=== PATIENT | male | born 1970 | race Two or more races ===

== ENCOUNTER 2021-02-02 16:52 | Inpatient (IN) | payer MEDICAID, OTHER ==
[~2021-02-02] VITALS: Ht 180.3 cm; Wt 110.9 kg
[2021-02-02] MEDS ORDERED: PROZAC PO (19:35)
[2021-02-02] MEDS ORDERED: GABAPENTIN 300 MG CAPSULE PO ONE (20:15)
[2021-02-02] MEDS ORDERED: IBUPROFEN 800 MG TABLET PO ONE (20:15)
[2021-02-02 20:28] LABS: BASOPHILS % (AUTO) 0.7 % (0.0-2.0); EOSINOPHILS % (AUTO) 3.4 % (1.0-6.0); HEMATOCRIT 50.8 % (41-53); HEMOGLOBIN 17.2 g/dL (13.5-17.5); LYMPHOCYTES % (AUTO) 23.8 % (22.0-44.0); MEAN CORPUSCULAR HEMOGLOBIN 31.9 pg (26.0-34.0); MEAN CORPUSCULAR HGB CONC 33.8 G/dL (31.0-37.0); MEAN CORPUSCULAR VOLUME 94 fL (80-100); MONOCYTES % (AUTO) 7.8 % (2.0-9.0); NEUTROPHILS # (AUTO) 8.2 K/uL (1.8-7.7); NEUTROPHILS % (AUTO) 64.3 % (40.0-70.0); PLATELET COUNT (AUTO) 424 K/uL (150-450); RED BLOOD CELL COUNT(AUTO) 5.39 MIL/uL (4.50-5.90); RED CELL DISTRIBUTION WIDTH 13.5 % (11.5-14.5)
[2021-02-02 20:44] LABS: AMPHET/METH SCREEN,URINE POSITIVE (NEGATIVE); BARBITURATE SCREEN, URINE NEGATIVE (NEGATIVE); BENZODIAZEPINES SCREEN,URINE NEGATIVE (NEGATIVE); CANNABINOID SCREEN,URINE NEGATIVE (NEGATIVE); COCAINE SCREEN,URINE NEGATIVE (NEGATIVE); METHADONE SCREEN, URINE NEGATIVE (NEGATIVE); OPIATE SCREEN,URINE NEGATIVE (NEGATIVE); PHENCYCLIDINE SCREEN,URINE NEGATIVE (NEGATIVE)
[2021-02-02 20:49] LABS: ANION GAP 11 mmol/L (8-16); CALCIUM, TOTAL 9.3 mg/dL (8.8-10.5); CARBON DIOXIDE 26 mmol/L (22-29); CHLORIDE 102 mmol/L (98-107); GLOMERULAR FILTR. RATE CALC > 60 mL/min (>60); GLUCOSE,RANDOM 133 mg/dL (70-110); POTASSIUM 4.9 mmol/L (3.5-5.1); SODIUM SERUM 139 mmol/L (136-145); UREA NITROGEN, BLOOD 17 mg/dL (7-18)
[2021-02-02 20:54] LABS: ALANINE AMINOTRANSFERASE 66 U/L (12-78); ALBUMIN 4.2 g/dL (3.4-5.0); ALKALINE PHOSPHATASE 109 U/L (46-116); ASPARTATE AMINOTRANSFERASE 38 U/L (15-37); BILIRUBIN,TOTAL 0.5 mg/dL (0.1-1.0); TOTAL PROTEIN, SERUM 7.9 g/dL (6.4-8.2)
[2021-02-02 21:52] LABS: COVID AG,FIA SOURCE NASOPHARYNGEAL
[2021-02-02] MEDS ORDERED: ZOLPIDEM TARTRATE 10 MG TABLET PO PRN (22:15)
[2021-02-03 03:44] LABS: APPEARANCE,URINE TURBID (CLEAR); BILIRUBIN,URINE NEGATIVE (NEGATIVE); GLUCOSE, URINE (UA) 250 mg/dL (NEGATIVE); KETONES,URINE NEGATIVE (NEGATIVE); LEUKOCYTE ESTERASE ,URINE NEGATIVE (NEGATIVE); NITRATE,URINE NEGATIVE (NEGATIVE); OCCULT BLOOD,URINE NEGATIVE (NEGATIVE); PROTEIN,URINE NEGATIVE (NEGATIVE); UROBILINOGEN,URINE 0.2 mg/dL (<=1.0)
[2021-02-03 03:50] LABS: BACTERIA,URINE Few /HPF (None Seen); CALCIUM OXALATE CRYSTALS,UR Few /LPF (None Seen); RBC,URINE 0-2 /HPF (0-2); SQUAMOUS EPITHELIAL CELL,UR Rare /LPF (None Seen)
[2021-02-03] MEDS ORDERED: GABAPENTIN 100 MG CAPSULE PO PRN (06:00)
[2021-02-03] MEDS ORDERED: GABAPENTIN 300 MG CAPSULE PO PRN (06:15)
[2021-02-03] MEDS ORDERED: IBUPROFEN 800 MG TABLET PO PRN (06:15)
[2021-02-03] MEDS ORDERED: GABAPENTIN 100 MG CAPSULE PO ONE (06:15)
[2021-02-03] MEDS ORDERED: GABAPENTIN 300 MG CAPSULE PO ONE (06:30)
[2021-02-03 10:37] VITALS: BP 147/86
[2021-02-03] MEDS ORDERED: PROP20TA96 PO (12:19)
[2021-02-03] MEDS ORDERED: FLUO20CA36 PO (12:19)
[2021-02-03] MEDS ORDERED: GABA-1181 PO (12:19)
[2021-02-03] MEDS ORDERED: MELA10TA2 PO (12:19)
[2021-02-03] MEDS ORDERED: INFLUENZA VIRUS VACCINE QVS 2021-22 (6MO+)/PF 60 MCG/0.5 ML SYRINGE IM. ONE (12:30)
[2021-02-03] MEDS ORDERED: IBUPROFEN 600 MG TABLET PO PRN (12:45)
[2021-02-03] MEDS ORDERED: PROPRANOLOL HCL 20 MG TABLET PO PRN (12:45)
[2021-02-03] MEDS: GABAPENTIN 300 MG CAPSULE PO SCH ×2 (13:00→16:41)
[2021-02-03 16:17] VITALS: BP 107/67
[2021-02-03 16:41] VITALS: BP 110/66
[2021-02-03] MEDS ORDERED: ONDANSETRON HCL 4 MG TABLET PO PRN (17:30)
[2021-02-03] MEDS ORDERED: GuaiFENesin/D-METHORPHAN [SUGAR-FREE] 200-20MG/10 ML SYRUP UDCUP PO PRN (17:30)
[2021-02-03] MEDS ORDERED: CloNIDine HCL 0.1 MG TABLET PO PRN (17:30)
[2021-02-03] MEDS ORDERED: DOCUSATE SODIUM 100 MG CAPSULE PO PRN (17:30)
[2021-02-03] MEDS ORDERED: ALBUTEROL SULFATE HFA 90 MCG/PUFF 8 GM INHALER IH PRN (17:30)
[2021-02-03] MEDS ORDERED: PETROLATUM,WHITE 28 GM JELLY TP PRN (17:30)
[2021-02-03] MEDS ORDERED: MAGNESIUM HYDROXIDE SUSPENSION 30 ML UDCUP PO PRN (17:30)
[2021-02-03] MEDS ORDERED: LOPERAMIDE HCL 2 MG CAPSULE PO PRN (17:30)
[2021-02-03] MEDS ORDERED: MAG HYDROX/AL HYDROX/SIMETH ES 30 ML SUSPENSION UDCUP PO PRN (17:30)
[2021-02-03] MEDS: LORazepam 2 MG TABLET PO PRN (18:20)
[2021-02-04] MEDS: IBUPROFEN 400 MG TABLET PO PRN (05:12)
[2021-02-04] MEDS: LORazepam 2 MG TABLET PO PRN (05:16)
[2021-02-04] MEDS: HALOPERIDOL 5 MG TABLET PO PRN (05:16)
[2021-02-04] MEDS: FLUoxetine HCL 20 MG CAPSULE PO SCH (09:34)
[2021-02-04] MEDS: OLANZapine 5 MG TABLET PO SCH (09:34)
[2021-02-04] MEDS: GABAPENTIN 300 MG CAPSULE PO SCH ×3 (09:34→16:16)
[2021-02-05] MEDS: IBUPROFEN 400 MG TABLET PO PRN ×2 (06:11→07:44)
[2021-02-05] MEDS: OLANZapine 5 MG TABLET PO SCH (07:44)
[2021-02-05] MEDS: GABAPENTIN 300 MG CAPSULE PO SCH ×3 (07:44→16:56)
[2021-02-05] MEDS: FLUoxetine HCL 20 MG CAPSULE PO SCH (07:44)
[2021-02-05] MEDS: LORazepam 2 MG TABLET PO PRN ×2 (07:44→16:57)
[2021-02-05] MEDS: HALOPERIDOL 5 MG TABLET PO PRN ×2 (08:30→16:57)
[2021-02-05] MEDS: NICOTINE 14 MG/24 HOUR PATCH TD PRN (08:31)
[2021-02-05 08:33] VITALS: BP 140/84
[2021-02-06] MEDS: IBUPROFEN 600 MG TABLET PO PRN (05:45)
[2021-02-06] MEDS: NICOTINE 14 MG/24 HOUR PATCH TD PRN (08:01)
[2021-02-06] MEDS: LORazepam 2 MG TABLET PO PRN ×2 (08:01→17:07)
[2021-02-06] MEDS: OLANZapine 5 MG TABLET PO SCH (08:01)
[2021-02-06] MEDS: FLUoxetine HCL 20 MG CAPSULE PO SCH (08:01)
[2021-02-06] MEDS: GABAPENTIN 300 MG CAPSULE PO SCH ×3 (08:01→17:06)
[2021-02-06] MEDS: HALOPERIDOL 5 MG TABLET PO PRN (08:07)
[2021-02-06] MEDS: ACETAMINOPHEN 325 MG TABLET PO PRN (09:33)
[2021-02-06 09:50] VITALS: BP 146/92
[2021-02-06 17:09] VITALS: BP 117/69
[2021-02-07] MEDS: IBUPROFEN 600 MG TABLET PO PRN ×2 (01:01→09:01)
[2021-02-07] MEDS: NICOTINE 14 MG/24 HOUR PATCH TD PRN (07:45)
[2021-02-07] MEDS: LORazepam 2 MG TABLET PO PRN ×2 (07:46→16:50)
[2021-02-07] MEDS: HALOPERIDOL 5 MG TABLET PO PRN ×2 (07:46→16:50)
[2021-02-07] MEDS: FLUoxetine HCL 20 MG CAPSULE PO SCH (07:46)
[2021-02-07] MEDS: GABAPENTIN 300 MG CAPSULE PO SCH ×3 (07:46→16:50)
[2021-02-07] MEDS: OLANZapine 5 MG TABLET PO SCH (07:46)
[2021-02-07 08:51] VITALS: BP 160/91
[2021-02-07 16:48] VITALS: BP 152/97
[2021-02-08 07:00] VITALS: BP 140/92
[2021-02-08] MEDS: IBUPROFEN 600 MG TABLET PO PRN ×2 (07:04→17:06)
[2021-02-08] MEDS: HALOPERIDOL 5 MG TABLET PO PRN (08:55)
[2021-02-08] MEDS: OLANZapine 5 MG TABLET PO SCH (08:55)
[2021-02-08] MEDS: FLUoxetine HCL 20 MG CAPSULE PO SCH (08:55)
[2021-02-08] MEDS: LORazepam 2 MG TABLET PO PRN (08:55)
[2021-02-08] MEDS: GABAPENTIN 300 MG CAPSULE PO SCH ×3 (08:55→17:06)
[2021-02-08 17:04] VITALS: BP 122/71
[2021-02-08] MEDS: OLANZapine 7.5 MG TABLET PO SCH (20:19)
[2021-02-09] MEDS: IBUPROFEN 600 MG TABLET PO PRN ×3 (03:22→20:07)
[2021-02-09 08:00] VITALS: BP 139/82
[2021-02-09] MEDS: GABAPENTIN 300 MG CAPSULE PO SCH ×3 (08:30→16:41)
[2021-02-09] MEDS: FLUoxetine HCL 20 MG CAPSULE PO SCH (08:30)
[2021-02-09] MEDS: OLANZapine 7.5 MG TABLET PO SCH ×2 (08:31→20:06)
[2021-02-09 11:28] VITALS: BP 137/86
[2021-02-09 20:00] VITALS: BP 141/84
[2021-02-09] MEDS: LORazepam 2 MG TABLET PO PRN (20:07)
[2021-02-10] MEDS: ACETAMINOPHEN 325 MG TABLET PO PRN (03:12)
[2021-02-10] MEDS: IBUPROFEN 600 MG TABLET PO PRN (08:13)
[2021-02-10] MEDS: OLANZapine 7.5 MG TABLET PO SCH (08:13)
[2021-02-10] MEDS: NICOTINE 14 MG/24 HOUR PATCH TD PRN (08:13)
[2021-02-10] MEDS: LORazepam 2 MG TABLET PO PRN (08:13)
[2021-02-10] MEDS: FLUoxetine HCL 20 MG CAPSULE PO SCH (08:13)
[2021-02-10] MEDS: HALOPERIDOL 5 MG TABLET PO PRN (08:13)
[2021-02-10] MEDS: GABAPENTIN 300 MG CAPSULE PO SCH ×2 (08:13→12:51)
[2021-02-10] MEDS ORDERED: OLAN7.5T22 PO (11:59)
== END 2021-02-10 14:56 | disposition left against medical advice (07) | DRG 753 ==
LOC: EMS 16:52 → 3EC 02-03 06:02
PROVIDERS: ADMIT Psychiatry & Neurology Child & Adolescent Psychiatry; ATTEND Psychiatry & Neurology Child & Adolescent Psychiatry
DX: F31.4 Bipolar disorder, current episode depressed, severe, without psychotic features (principal); R45.851 Suicidal ideations; D72.829 Elevated white blood cell count, unspecified; E66.9 Obesity, unspecified; Z20.822 Contact with and (suspected) exposure to COVID-19; F15.10 Other stimulant abuse, uncomplicated; F41.1 Generalized anxiety disorder; Z53.29 Procedure and treatment not carried out because of patient's decision for other reasons; G89.29 Other chronic pain; M54.30 Sciatica, unspecified side; Z59.00 Homelessness unspecified; Z91.51 Personal history of suicidal behavior; Z28.21 Immunization not carried out because of patient refusal; Z68.34 Body mass index [BMI] 34.0-34.9, adult; Z79.899 Other long term (current) drug therapy
CPT/HCPCS: 80053; 81001; 85025; 99285; G0480

== ENCOUNTER 2021-02-14 11:53 | Inpatient (IN) | payer MEDICAID, OTHER ==
[~2021-02-14] VITALS: Ht 180.3 cm; Wt 111.2 kg
[~2021-02-14 11:53] MED LIST: FLUO20CA36 PO; GABA-1181 PO; OLAN7.5T22 PO
[2021-02-14] MEDS ORDERED: LORazepam 2 MG TABLET PO ONE (12:30)
[2021-02-14] MEDS ORDERED: HALOPERIDOL 5 MG TABLET PO ONE (12:30)
[2021-02-14] MEDS ORDERED: ZOLPIDEM TARTRATE 10 MG TABLET PO PRN (13:45)
[2021-02-14 14:41] LABS: COVID AG,FIA SOURCE NASOPHARYNGEAL
[2021-02-14] MEDS ORDERED: DiphenhydrAMINE HCL 50 MG/ML VIAL IM ONE (14:45)
[2021-02-14] MEDS ORDERED: LORazepam 2 MG/ML VIAL IM ONE (14:45)
[2021-02-14] MEDS ORDERED: HALOPERIDOL LACTATE 5 MG/ML VIAL IM ONE (14:45)
[2021-02-14] MEDS ORDERED: DiphenhydrAMINE HCL 50 MG/ML VIAL ONE (14:46)
[2021-02-14] MEDS ORDERED: HALOPERIDOL LACTATE 5 MG/ML VIAL ONE (14:46)
[2021-02-14] MEDS ORDERED: LORazepam 2 MG/ML VIAL ONE (14:46)
[2021-02-14 16:00] VITALS: BP 110/67
[2021-02-14] MEDS ORDERED: IBUPROFEN 600 MG TABLET PO PRN (16:30)
[2021-02-14] MEDS ORDERED: ACETAMINOPHEN 325 MG TABLET PO PRN (16:30)
[2021-02-14] MEDS: GABAPENTIN 300 MG CAPSULE PO SCH (17:52)
[2021-02-14] MEDS: HALOPERIDOL 5 MG TABLET PO PRN (19:45)
[2021-02-14] MEDS: LORazepam 2 MG TABLET PO PRN (19:45)
[2021-02-15] MEDS: GABAPENTIN 300 MG CAPSULE PO SCH ×3 (07:50→17:13)
[2021-02-15] MEDS: HALOPERIDOL 5 MG TABLET PO PRN (07:50)
[2021-02-15] MEDS: LORazepam 2 MG TABLET PO PRN (07:50)
[2021-02-15] MEDS ORDERED: CloNIDine HCL 0.1 MG TABLET PO PRN (08:00)
[2021-02-15] MEDS ORDERED: NICOTINE 14 MG/24 HOUR PATCH TD PRN (08:00)
[2021-02-15] MEDS ORDERED: ACETAMINOPHEN 325 MG TABLET PO PRN (08:00)
[2021-02-15] MEDS ORDERED: PETROLATUM,WHITE 28 GM JELLY TP PRN (08:00)
[2021-02-15] MEDS ORDERED: DOCUSATE SODIUM 100 MG CAPSULE PO PRN (08:00)
[2021-02-15] MEDS ORDERED: GuaiFENesin/D-METHORPHAN [SUGAR-FREE] 200-20MG/10 ML SYRUP UDCUP PO PRN (08:00)
[2021-02-15] MEDS ORDERED: LOPERAMIDE HCL 2 MG CAPSULE PO PRN (08:00)
[2021-02-15] MEDS ORDERED: MAG HYDROX/AL HYDROX/SIMETH ES 30 ML SUSPENSION UDCUP PO PRN (08:00)
[2021-02-15] MEDS ORDERED: ONDANSETRON HCL 4 MG TABLET PO PRN (08:00)
[2021-02-15] MEDS ORDERED: ALBUTEROL SULFATE HFA 90 MCG/PUFF 8 GM INHALER IH PRN (08:00)
[2021-02-15] MEDS ORDERED: MAGNESIUM HYDROXIDE SUSPENSION 30 ML UDCUP PO PRN (08:00)
[2021-02-15 09:22] VITALS: BP 119/69
[2021-02-15] MEDS: FLUoxetine HCL 20 MG CAPSULE PO SCH (10:47)
[2021-02-15] MEDS: OLANZapine 7.5 MG TABLET PO SCH ×2 (10:47→20:02)
[2021-02-15 16:01] VITALS: BP 115/65
[2021-02-16] MEDS: IBUPROFEN 400 MG TABLET PO PRN ×2 (01:41→07:41)
[2021-02-16] MEDS: FLUoxetine HCL 20 MG CAPSULE PO SCH (07:41)
[2021-02-16] MEDS: OLANZapine 7.5 MG TABLET PO SCH ×2 (07:41→20:09)
[2021-02-16] MEDS: GABAPENTIN 300 MG CAPSULE PO SCH ×3 (07:41→16:09)
[2021-02-16] MEDS: HALOPERIDOL 5 MG TABLET PO PRN (14:26)
[2021-02-16] MEDS: LORazepam 2 MG TABLET PO PRN (14:26)
[2021-02-16 18:18] VITALS: BP 116/65
[2021-02-16 20:09] VITALS: BP 112/69
[2021-02-16] MEDS: IBUPROFEN 600 MG TABLET PO PRN (20:09)
[2021-02-17] MEDS: FLUoxetine HCL 20 MG CAPSULE PO SCH (07:54)
[2021-02-17] MEDS: HALOPERIDOL 5 MG TABLET PO PRN (07:54)
[2021-02-17] MEDS: LORazepam 2 MG TABLET PO PRN ×2 (07:54→14:06)
[2021-02-17] MEDS: OLANZapine 7.5 MG TABLET PO SCH (07:54)
[2021-02-17] MEDS: IBUPROFEN 600 MG TABLET PO PRN (07:54)
[2021-02-17] MEDS: GABAPENTIN 300 MG CAPSULE PO SCH ×2 (07:54→12:02)
[2021-02-17 08:35] VITALS: BP 134/80
[2021-02-17] MEDS ORDERED: GABA-1181 PO (10:40)
[2021-02-17 14:06] VITALS: BP 129/78
== END 2021-02-17 15:00 | disposition home or self-care (01) | DRG 753 ==
LOC: EMS 11:58 → 3EC 15:03
PROVIDERS: ADMIT Psychiatry & Neurology Child & Adolescent Psychiatry; ATTEND Psychiatry & Neurology Child & Adolescent Psychiatry
DX: F31.4 Bipolar disorder, current episode depressed, severe, without psychotic features (principal); R45.851 Suicidal ideations; E66.9 Obesity, unspecified; K59.00 Constipation, unspecified; F10.10 Alcohol abuse, uncomplicated; S51.812A Laceration without foreign body of left forearm, initial encounter; R03.0 Elevated blood-pressure reading, without diagnosis of hypertension; Z68.34 Body mass index [BMI] 34.0-34.9, adult; Z20.822 Contact with and (suspected) exposure to COVID-19; Z71.41 Alcohol abuse counseling and surveillance of alcoholic; X83.8XXA Intentional self-harm by other specified means, initial encounter; Y93.89 Activity, other specified; Y92.89 Other specified places as the place of occurrence of the external cause; Y99.8 Other external cause status
CPT/HCPCS: 87081; 99285; J1200; J1630; J2060